=== PATIENT | female | born 1950 | race Caucasian/White ===

== ENCOUNTER → 2017-05-11 | Outpatient (CLI) | payer OTHER ==
[~2017-05-11] MED LIST: GADOBUTROL 7.5 MMOL/7.5 ML PFS ONE
== END | disposition home or self-care (01) ==
LOC: RAD 15:34
PROVIDERS: ATTEND Internal Medicine
DX: J32.0 Chronic maxillary sinusitis (principal); C50.412 Malignant neoplasm of upper-outer quadrant of left female breast
CPT/HCPCS: 70553; A9585

== ENCOUNTER 2017-05-17 03:55 | Emergency (ER) | payer OTHER ==
[~2017-05-17] VITALS: Ht 172.7 cm; Wt 74.8 kg
[2017-05-17 03:59] VITALS: BP 171/98
[2017-05-17] MEDS ORDERED: ONDANSETRON 2MG/ML, 2ML IVPush ONE (05:00)
[2017-05-17] MEDS ORDERED: ONDANSETRON 2MG/ML, 2ML ONE (05:09)
[2017-05-17 05:17] LABS: HEMATOCRIT 34.3 % (34.6-47.8); WHITE BLOOD COUNT 4.7 x10^3/uL (3.4-10)
[2017-05-17 05:25] LABS: BLOOD UREA NITROGEN 21 mg/dL (7-18)
[2017-05-17] MEDS ORDERED: SILVER NITRATE STICK TP ONE (05:26)
[2017-05-17] MEDS ORDERED: BACITRACIN ZINC OINT 500U/GM, 0.9 GM ONE (05:27)
== END 2017-05-17 06:17 | disposition home or self-care (01) ==
LOC: ED 05:09
DX: R04.0 Epistaxis (principal); I10 Essential (primary) hypertension; E11.9 Type 2 diabetes mellitus without complications; I48.91 Unspecified atrial fibrillation
CPT/HCPCS: 30901; 36415; 80048; 82040; 85025; 85610; 85730; 86850; 86900; 96374; 99284; J2405

== ENCOUNTER 2018-01-22 18:43 | Emergency (ER) | payer MEDICARE ==
[~2018-01-22] VITALS: Ht 172.7 cm; Wt 77.2 kg
[2018-01-22] MEDS ORDERED: ACETAMINOPHEN 500 MG TABLET ONE (19:27)
[2018-01-22] MEDS ORDERED: SODIUM CHLORIDE 0.9% 1,000ML IVBOLUS ONE (19:30)
[2018-01-22] MEDS ORDERED: ACETAMINOPHEN 500 MG TABLET PO ONE (19:30)
[2018-01-22] MEDS ORDERED: SODIUM CHLORIDE FLUSH 10ML SYR IVF ONE (19:30)
[2018-01-22 19:39] LABS: MICROSCOPIC INDICATED
[2018-01-22 19:40] LABS: BASOPHILS # (AUTO) 0.01 x10^3/uL (0-0.1); BASOPHILS % (AUTO) 0 % (0-1); EOSINOPHILS # (AUTO) 0.01 x10^3/uL (0-0.4); EOSINOPHILS % (AUTO) 0 % (1-7); LYMPHOCYTES # (AUTO) 0.44 x10^3/uL (1-3.4); LYMPHOCYTES % (AUTO) 7 % (22-44); MD NO; MEAN CORPUSCULAR HEMOGLOBIN 28.1 pg (27.0-34.8); MEAN CORPUSCULAR VOLUME 85.2 fL (80-100); MEAN PLATELET VOLUME 9.1 fL (7.4-10.4); MONOCYTES # (AUTO) 0.22 x10^3/uL (0.2-0.8); MONOCYTES % (AUTO) 4 % (2-9); NEUTROPHILS # (AUTO) 5.35 x10^3/uL (1.8-6.8); NEUTROPHILS % (AUTO) 89 % (42-75); PLATELET COUNT 176 x10^3/uL (130-400); RED BLOOD COUNT 4.88 x10^6/uL (3.82-5.3); RED CELL DISTRIBUTION WIDTH 15.9 % (9.6-15.2)
[2018-01-22] MEDS ORDERED: METO25TA35 PO (19:42)
[2018-01-22] MEDS ORDERED: [UNRECOGNIZED DRUG - CODE] PO (19:44)
[2018-01-22] MEDS ORDERED: DILT240C77 PO (19:47)
[2018-01-22] MEDS ORDERED: ANAS1TAB PO (19:47)
[2018-01-22] MEDS ORDERED: ROSU20TA PO (19:49)
[2018-01-22] MEDS ORDERED: METO50TA82 PO (19:50)
[2018-01-22 19:51] LABS: ALANINE AMINOTRANSFERASE 34 U/L (12-78); ANION GAP 7 mmol/L (5-15); CALCIUM 8.8 mg/dL (8.5-10.1); CHLORIDE 105 mmol/L (98-107)
[2018-01-22] MEDS ORDERED: DOXY50CA42 PO (19:51)
[2018-01-22] MEDS ORDERED: HYDR25TA6 PO (19:51)
[2018-01-22] MEDS ORDERED: METF500T4 PO ×2 (19:52→19:53)
[2018-01-22 19:54] LABS: ALKALINE PHOSPHATASE 80 U/L (45-117); BILIRUBIN,TOTAL 0.5 mg/dL (0.2-1.0); CREATININE 0.87 mg/dL (0.55-1.02); TOTAL PROTEIN 7.8 g/dL (6.4-8.2)
[2018-01-22] MEDS ORDERED: DIPHENHYDRAMINE 50 MG/ML, 1ML IVPush ONE (20:00)
[2018-01-22] MEDS ORDERED: METOCLOPRAMIDE 5 MG/ML, 2ML IVPush ONE (20:00)
[2018-01-22] MEDS ORDERED: DIPHENHYDRAMINE 50 MG/ML, 1ML ONE (20:01)
[2018-01-22] MEDS ORDERED: METOCLOPRAMIDE 5 MG/ML, 2ML ONE (20:01)
[2018-01-22 20:16] LABS: CULTURE INDICATED? NO
[2018-01-22 21:18] VITALS: BP 150/85
== END 2018-01-22 22:01 | disposition home or self-care (01) ==
LOC: ED 21:50
DX: G44.89 Other headache syndrome (principal); J32.1 Chronic frontal sinusitis; J32.0 Chronic maxillary sinusitis; R30.0 Dysuria; I48.91 Unspecified atrial fibrillation; I10 Essential (primary) hypertension; E11.9 Type 2 diabetes mellitus without complications
CPT/HCPCS: 36415; 71045; 80053; 81001; 83605; 85025; 93005; 96361; 96374; 96375; 99285; J1200; J2765; J7030